=== PATIENT | male | born 1995 | race Hispanic/Latino ===

== ENCOUNTER 2019-07-11 | Emergency (ER) | payer SELFPAY ==
[2019-07-11 13:37] LABS: IMMATURE GRANULOCYTES 0.3 % (0.0-5.0); MEAN CELL VOLUME 84.6 fL CALC (80.0-100.0); MEAN CORPUSCULAR HGB 29.8 pG CALC (26.0-32.0); MEAN CORPUSCULAR HGB CONC 35.3 g/dL CAL (32.0-36.0); NEUT# 9.31 thou/uL (1.82-7.42); RED BLOOD COUNT 5.73 mill/uL (4.70-6.10); RED CELL DISTRI WIDTH 12.3 % (11.5-15.5)
[2019-07-11 13:39] LABS: HEMATOCRIT 48.5 % (39.0-50.0); HEMOGLOBIN 17.1 g/dl (14.0-18.0)
[2019-07-11 13:58] LABS: ALBUMIN 5.1 g/dL (3.2-5.0); ANION GAP 16 (6-22 (CALC)); BUN 13 mg/dL (9-20); BUN/CREATININE RATIO 14 (12-20 (CALC)); CARBON DIOXIDE 27 mmol/l (22-30); CHLORIDE 102 mmol/l (95-108); CREATININE 0.9 mg/dL (0.7-1.3); GFR > 60 ML/MIN (>=60 (CALC)); GFR FOR AFR.AMER. > 60 ML/MIN (>=60 (CALC)); POTASSIUM 4.9 mmol/l (3.5-5.1); SGOT/AST 20 u/l (17-59); SODIUM 140 mmol/l (137-146); TOTAL PROTEIN 8.7 g/dL (6.3-8.2)
[2019-07-11 14:00] LABS: ALKALINE PHOSPHATASE 58 u/l (38-126); BILIRUBIN, TOTAL 0.9 mg/dL (0.0-1.4)
[2019-07-11] MEDS ORDERED: VENTOLIN HFA IN (14:05)
[2019-07-11] MEDS ORDERED: CLARITHROMYCIN500 MG PO (14:05)
== END 2019-07-11 14:10 | disposition home or self-care (01) | DRG 203 ==
PROVIDERS: Family Medicine
DX: J40 Bronchitis, not specified as acute or chronic (principal)